=== PATIENT | female | born 1965 | race Caucasian/White ===

== ENCOUNTER 2019-03-10 16:38 | Inpatient (IN) | payer SELFPAY ==
[~2019-03-10] VITALS: Ht 175.2 cm; Wt 62.8 kg
[2019-03-10 16:42] VITALS: BP 118/52
[2019-03-10 17:09] LABS: BASO % 0.2 % (0.0-1.0); EOS % 0.1 % (1.0-4.0); HEMATOCRIT 40.1 % (37.0-47.0); HEMOGLOBIN 13.2 g/dl (12.0-16.0); LYMPH # 1.1 10*3/uL (1.3-4.4); LYMPH % 7.8 % (27.0-41.0); MEAN CELL VOLUME 99.3 fl (81.0-99.0); MEAN CORPUSCULAR HGB 32.7 pg (27.0-31.0); MEAN CORPUSCULAR HGB CONC 32.9 g/dl (33.0-37.0); MONO # 0.4 10*3/uL (0.1-1.0); MONO % 2.5 % (3.0-9.0); PLATELET COUNT AUTOMATED 333 10*3/uL (130-400); RED BLOOD COUNT 4.04 10*6/uL (4.10-5.10); RED CELL DISTRI WIDTH 12.7 % (0-14.5); WHITE BLOOD COUNT 14.6 10*3/uL (4.8-10.8)
--- NOTE | 2019-03-10 17:13 | NUR ---
PT UNABLE TO PROVIDE URINE SPECIMEN AT THIS TIME, REFUSES CATH SPECIMEN. SALINE INFUSING WIDE BOLUS NOW.
[2019-03-10 17:23] LABS: ALBUMIN 3.7 gm/dl (3.1-4.5); CREATININE 1.95 mg/dL (0.55-1.02); POTASSIUM 4.1 mmol/L (3.5-5.1)
--- NOTE | 2019-03-10 17:24 | NUR ---
BLOOD GLUCOSE 547 AT THIS TIME CALLED CRITICAL. DR EDDY NOTIFIED.
[2019-03-10 17:53] VITALS: BP 107/42
[2019-03-10 18:19] LABS: ABG BASE EXCESS -11.3 mmol/L (-2.0-2.0); ABG HCO3 13.3 mmol/l (22-26); ABG O2 SATURATION 97.5 % (95-97); ARTERIAL BLOOD GAS PH 7.312 (7.35-7.45); ARTERIAL BLOOD GAS PO2 83.9 mmHg (80-90)
--- NOTE | 2019-03-10 18:21 | NUR ---
1811- [facility] PER POLICY AND PROCEDURE. ALLENS TEST SUCCESSFUL. SITE CLEANED. PRESSURE HELD X 5 MIN AFTER GAS. EXPLAINED PROCEDURE TO PT. PT TOLERATED WELL.
--- NOTE | 2019-03-10 18:55 | NUR ---
DR EDDY INFORMED THAT A RESIDENT UPSTAIRS HAS ASKED THAT PT BE ADMITTED TO ICU FOR D.K.A. DR EDDY STATES PT DOES NOT HAVE D.K.A. AND DECLINES TO PUT IN THE ORDER.
[2019-03-10 19:45] VITALS: BP 125/56
--- NOTE | 2019-03-10 19:45 | NUR ---
A 53, admitted to ICCU, under the services of HIAM Joya DO with a diagnosis of DKA. Chief complaint is HYPERGLYCEMIA. Patient arrived via bed from ER. Monitor applied. Initial assessment completed. Vital signs taken and recorded. HAIM JOYA DO notified of admission to the unit. Orders received. See assessment for past medical history, medications and allergies. Patient and/or family oriented to unit. [facility] ICCU visitation policy reviewed. Clothing/patient valuable form completed. STEPHANIE CORDOBA
--- NOTE | 2019-03-10 19:55 | NUR ---
INSULIN GTT INITIATED. BG 319 ON ARRIVAL TO ICCU 5. RATE STARTED AT 4UNITS/HR PER SCALE.
[2019-03-10 20:00] VITALS: BP 125/56
[2019-03-10] MEDS ORDERED: HUMALOG100 UNIT/2 SQ (20:09)
[2019-03-10 20:10] LABS: BILIRUBIN 1+ (NEGATIVE); BLOOD TRACE-INTACT (NEGATIVE); CLARITY CLEAR (CLEAR); COLOR YELLOW (YELLOW); GLUCOSE 3+ (NEGATIVE); KETONE 3+ (NEGATIVE); LEUKO ESTERASE TRACE (NEGATIVE); NITRITE NEGATIVE (NEGATIVE); UROBILINOGEN 0.2 E.U./dl (0.2-1.0)
[2019-03-10] MEDS ORDERED: LANTUS SOL100 UNIT/1 SQ (20:10)
[2019-03-10 20:25] LABS: BACTERIA 1+; HYALINE CAST 0-2; WBC 21-30 wbc/hpf (0-5)
[2019-03-10 20:26] LABS: RBC 0-2 rbc/hpf (0-2)
--- NOTE | 2019-03-10 20:30 | NUR ---
NOTIFIED DR. MASON THAT MED REC IS UP TO DATE AND CURRENT BLOOD SUGAR OF 233. PATIENT INSULIN GTT STILL AT INITIAL RATE OF 4UNITS/HR. ORDERS RECEIVED TO CHANGE FLUIDS FROM NORMAL SALINE TO D5 1/2 NS @ 125/HR. DIET ORDERED. AND NIGHT TIME DOSE OF LANTUS TO BE GIVEN.
[2019-03-10 22:23] LABS: CREATININE 1.48 mg/dL (0.55-1.02); POTASSIUM 4.2 mmol/L (3.5-5.1)
[2019-03-11] VITALS: BP 106/51
--- NOTE | 2019-03-11 | NUR ---
INSULIN DRIP AND D5 1/2 NS STOPPED PER ORDERS. CURRENT BG OF 140. WILL CONTINUE TO MONITOR AND REASSESS.
--- NOTE | 2019-03-11 02:00 | NUR ---
PATIENT BLOOD GLUCOSE 62. PATIENT STATES THAT THEIR SUGAR DOES FEEL LOW. JUICE GIVEN WITH TD CRACKER AND PEANUT BUTTER. WILL RECHECK IN TWO HOURS.
[2019-03-11 02:16] LABS: CREATININE 1.23 mg/dL (0.55-1.02); POTASSIUM 3.8 mmol/L (3.5-5.1)
[2019-03-11 04:00] VITALS: BP 102/50
--- NOTE | 2019-03-11 04:30 | NUR ---
BLOOD GLUCOSE 81 ON RECHECK. PATIENT STATES THEY FEEL MUCH BETTER. SNACK ON BEDSIDE TABLE FOR PATIENT.
[2019-03-11 06:16] LABS: BASO % 0.4 % (0.0-1.0); EOS # 0.1 10*3/uL (0.0-0.4); EOS % 1.1 % (1.0-4.0); HEMATOCRIT 34.2 % (37.0-47.0); HEMOGLOBIN 11.5 g/dl (12.0-16.0); LYMPH # 2.3 10*3/uL (1.3-4.4); LYMPH % 21.9 % (27.0-41.0); MEAN CELL VOLUME 96.6 fl (81.0-99.0); MEAN CORPUSCULAR HGB 32.5 pg (27.0-31.0); MEAN CORPUSCULAR HGB CONC 33.6 g/dl (33.0-37.0); MEAN PLATELET VOLUME 9.5 fl (9.6-12.3); MONO # 0.6 10*3/uL (0.1-1.0); MONO % 5.9 % (3.0-9.0); NEUT # 7.4 10*3/uL (2.3-7.9); NEUT % 70.3 % (47.0-73.0); PLATELET COUNT AUTOMATED 272 10*3/uL (130-400); RED BLOOD COUNT 3.54 10*6/uL (4.10-5.10); RED CELL DISTRI WIDTH 12.8 % (0-14.5); WHITE BLOOD COUNT 10.5 10*3/uL (4.8-10.8)
[2019-03-11 06:36] LABS: CREATININE 1.18 mg/dL (0.55-1.02); POTASSIUM 3.6 mmol/L (3.5-5.1)
[2019-03-11 06:39] LABS: ALBUMIN 3.1 gm/dl (3.1-4.5); CREATININE 1.16 mg/dL (0.55-1.02); PHOSPHOROUS 1.8 mg/dL (2.5-4.9); POTASSIUM 3.6 mmol/L (3.5-5.1); TOTAL PROTEIN 5.8 gm/dL (6.4-8.2)
[2019-03-11 06:43] LABS: THYROID STIM HORMONE (HS) 22.7 uIU/ml (0.358-4.75)
[2019-03-11 08:00] VITALS: BP 106/50
--- NOTE | 2019-03-11 09:09 | NUR ---
DR. RICHTER HERE TO SEE PATIENT AND WAS UPDATED ON CARE
[2019-03-11 12:00] VITALS: BP 111/48
--- NOTE | 2019-03-11 15:45 | NUR ---
ASSUMES CARE FOR PATIENT AT THIS TIME. REPORT RECEIVED FROM [facility] NURSE GRACE. SEE ASSESSMENT.
[2019-03-11 16:00] VITALS: BP 119/45
--- NOTE | 2019-03-11 16:10 | NUR ---
TRANSFERRED TO ROOM [facility] VIA WHEELCHAIR.
--- NOTE | 2019-03-11 19:24 | NUR ---
PT AWAKE IN BED. PATIENT DENIES ANY NEEDS AT THIS TIME. IVF INFUSING PER ORDER. WILL CONTINUE TO MONITOR. CALL LIGHT LEFT IN REACH.
[2019-03-11 20:00] VITALS: BP 113/51
--- NOTE | 2019-03-11 21:25 | NUR ---
PATIENT'S BSG CURRENTLY 60. PT ASYMPTOMATIC. BOXED LUNCH WITH TURKEY SANDWICH, TD CRACKERS, PEANUT BUTTER, AND ORANGE JUICE PROVIDED. PT EDUCATED ON S/S TO NOTIFY RN. VERBALIZES UNDERSTANDING. WILL RECHECK BSG AT LATER TIME.
--- NOTE | 2019-03-11 21:34 | NUR ---
EARLIER MEDICATIONS APPEAR EFFECTIVE. PT RESTING IN BED WITH EYES CLOSED. NO S/S OF DISTRESS NOTED. WILL MONITOR. CALL LIGHT IN REACH, BED ALARM INTACT.
--- NOTE | 2019-03-11 22:19 | NUR ---
PT'S BSG NOW 70. GRAPE JUICE PROVIDED PER REQUEST. PT REMAINS ASYMPTOMATIC. WILL CONTINUE TO MONITOR. CALL LIGHT IN REACH.
--- NOTE | 2019-03-11 23:33 | NUR ---
PT TAKEN OFF MONITOR TO GET A SHOWER. TOWELS/WASH CLOTHS/GOWN/SOAP PROVIDED. IV SITE TO LAC WRAPPED. PATIENT A&OX3 & AMBULATORY. ELECTRIC STOP INSTALLER NOTIFIED OF PT BEING TAKEN OFF MONITOR. WILL MONITOR.
[2019-03-12] VITALS: BP 107/52
--- NOTE | 2019-03-12 00:18 | NUR ---
PT PLACED BACK ON CONSTRUCTION ANALYST. PT REFUSED TO GET A SHOWER, BUT STATES SHE DID NOT WANT TO TELL RN BECAUSE SHE DIDN'T WANT TO GO BACK ON THE MONITOR. RN EXPLAINED THAT THE MONITOR WAS ORDERED FOR HER PER THE DOCTORS & SHE IS ENCOURAGED TO WEAR IT. PT AGREEABLE. DENIES ANY NEEDS AT THIS TIME.
--- NOTE | 2019-03-12 02:53 | NUR ---
PT ASLEEP IN BED. RESPIRATIONS EASY. NO S/S OF DISTRESS NOTED. WILL MONITOR. CALL LIGHT IN REACH.
--- NOTE | 2019-03-12 05:58 | NUR ---
NOTIFIED OF BSG 50 AT THIS TIME. DISCUSSED ORANGE JUICE WITH ADDED SUGAR GIVEN, PEANUT BUTTER, & TD CRACKERS. PATIENT DENIES ANY SYMPTOMS, AND IS COMPLAINING OF ONLY A HEADACHE. PT MEDICATED WITH PO TYLENOL FOR THIS REASON. DISCUSSED D50 SHORTAGE/OUT OF STOCK & ALTERNATIVE SUGGESTION 500ML D10W. INSTRUCTED TO ENCOURAGE PT TO EAT/DRINK AND RECHECK BSG WITHIN THE HOUR.
--- NOTE | 2019-03-12 06:37 | NUR ---
BSG NOW 141. PT DENIES ANY NEW/WORSENING SYMPTOMS. STILL C/O MILD HEADACHE, BUT PT STATES IT IS IMPROVING. WILL MONITOR. CALL LIGHT IN REACH.
[2019-03-12 08:00] VITALS: BP 116/58
--- NOTE | 2019-03-12 08:30 | NUR ---
Patient resting quietly with no c/o discomfort. Respirations easy and regular. Vital signs stable. No overt distress. FLAQUITO MEJIA R
--- NOTE | 2019-03-12 09:00 | NUR ---
Rn Surgical in to talk to patient. Patient states lives at home with . There are few steps in the home. Physician: jordana cloud [facility]acy: [facility] Home health services: none Patient's level of ADLs: INDEPENDENT Patient has working utilities: all working DME: none Follow-up physician's appointment after d/c: will be made by hospitalist nurse director upon discharge Does patient want to access PORTAL?: no Discharge plan discussed with patient, patient lives at home with , she is independent in adls and ambulation patient states she is having difficulty paying for her medication due to no insurance, educated her regarding [facility] pharmacy program to help patient's afford their medications, patient wanted to have her scripts filled here where she can afford them, also educated her that Jovita from [employer] will see her regarding help with her hospital bill, patient denied any other needs at this time, case management will follow. MORGAN LIMA
--- NOTE | 2019-03-12 10:50 | NUR ---
Nutritional Support Services Note: Pt is a 53 year old female who presents with hyperglycemia and DKA. Upon interview, she stated she knows she needs to plan her meals better, but she doesn't have time to worry about what she's eating. She stated when she was first dx years ago, she would plan all of her meals out but no longer makes time for this. She told me if I were to educate her it would be a waste of time because she isn't going to adhere once DC. Pt noncomplient. Edmar Martin [employer] C[employer] Student
--- NOTE | 2019-03-12 11:30 | NUR ---
BSG 216. PT REQUESTS TO HOLD OFF ON INSULIN AND TEST AGAIN LATER AND MEDICATE FOR THAT RESULT. NO S/S OF HYPO/HYPERGLYCEMIA NOTED. WILL MONITOR
[2019-03-12] MEDS ORDERED: Humalog SQ (12:58)
[2019-03-12] MEDS ORDERED: LANTUS SOL100 UNIT/1 SQ (12:58)
--- NOTE | 2019-03-12 13:19 | NUR ---
BSG TAKEN PER REQUEST, RESULT 203. PT REQUESTS ONLY 2 UNITS OF INSULIN TO BE GIVEN. GIVEN PER REQUEST. CALL LIGHT IN REACH. WILL MONITOR
--- NOTE | 2019-03-12 14:38 | NUR ---
Discharge instructions reviewed with patient/family. Patient receptive and verbalizes understanding. Follow-up care arranged. Written instructions given to patient/family. FLAQUITO MEJIA
== END 2019-03-12 14:38 | disposition home or self-care (01) | DRG 637 ==
LOC: ED 16:38 → 4E 18:45 → EDHOLD 18:45 → ICCU 18:45 → 4E 18:50 → ICCU 19:14 → 5E 03-11 15:40
PROVIDERS: Emergency Medicine; Student in an Organized Health Care Education/Training Program; ADMIT Emergency Medicine
DX: E11.10 Type 2 diabetes mellitus with ketoacidosis without coma (principal); N17.0 Acute kidney failure with tubular necrosis; R65.10 Systemic inflammatory response syndrome (SIRS) of non-infectious origin without acute organ dysfunction; E44.0 Moderate protein-calorie malnutrition; E87.1 Hypo-osmolality and hyponatremia; D72.829 Elevated white blood cell count, unspecified; E87.8 Other disorders of electrolyte and fluid balance, not elsewhere classified; D64.9 Anemia, unspecified; Z71.6 Tobacco abuse counseling; Z79.4 Long term (current) use of insulin; Z68.1 Body mass index [BMI] 19.9 or less, adult; Z88.8 Allergy status to other drugs, medicaments and biological substances; Z80.1 Family history of malignant neoplasm of trachea, bronchus and lung

== ENCOUNTER → 2019-04-01 | Outpatient (CLI) | payer SELFPAY ==
[~2019-04-01] MED LIST: HUMALOG100 UNIT/2 SQ; Humalog SQ; LANTUS SOL100 UNIT/1 SQ
== END | disposition home or self-care (01) ==
LOC: RESCLI 00:39
DX: Z13.9 Encounter for screening, unspecified (principal); E10.69 Type 1 diabetes mellitus with other specified complication; E03.9 Hypothyroidism, unspecified; E55.9 Vitamin D deficiency, unspecified; D64.9 Anemia, unspecified; Z72.0 Tobacco use; Z79.899 Other long term (current) drug therapy; Z88.8 Allergy status to other drugs, medicaments and biological substances

== ENCOUNTER → 2019-06-10 | Outpatient (CLI) | payer OTHER ==
[2019-06-10 15:36] LABS: HEMATOCRIT 42.3 % (37.0-47.0); HEMOGLOBIN 13.7 g/dl (12.0-16.0); MEAN CELL VOLUME 98.8 fl (81.0-99.0); MEAN CORPUSCULAR HGB CONC 32.4 g/dl (33.0-37.0); MEAN PLATELET VOLUME 10.6 fl (9.6-12.3); RED BLOOD COUNT 4.28 10*6/uL (4.10-5.10); RED CELL DISTRI WIDTH 12.8 % (0-14.5); WHITE BLOOD COUNT 7.6 10*3/uL (4.8-10.8)
[2019-06-10 16:26] LABS: FREE T4 0.55 ng/dl (0.76-1.46)
[2019-06-11 13:09] LABS: ANTI-DSDNA ANTIBODIES 096339 1 IU/mL (0-9); ANTI-RNP ANTIBODIES <0.2 AI (0.0-0.9); ANTICHROMATIN ANTIBODIES <0.2 AI (0.0-0.9); ANTISCLERODERMA-70 AB <0.2 AI (0.0-0.9); SJOGREN ANTI-SS-A <0.2 AI (0.0-0.9); SJOREN AB, ANTI-SS-B <0.2 AI (0.0-0.9)
== END | disposition home or self-care (01) ==
LOC: RESCLI 00:51
PROVIDERS: Internal Medicine
DX: Z13.9 Encounter for screening, unspecified (principal); E10.69 Type 1 diabetes mellitus with other specified complication; E03.9 Hypothyroidism, unspecified; E55.9 Vitamin D deficiency, unspecified; D64.9 Anemia, unspecified; M25.552 Pain in left hip; Z72.0 Tobacco use; Z79.899 Other long term (current) drug therapy

== ENCOUNTER → 2019-06-12 | Outpatient (CLI) | payer OTHER | END | disposition home or self-care (01) | LOC: RAD 10:21 | DX: M25.552 Pain in left hip (principal); M54.5 Low back pain ==

== ENCOUNTER → 2019-07-16 | Outpatient (CLI) | payer OTHER ==
--- NOTE | ~2019-07-16 | EKG ---
[place], [place] ELECTROCARDIOGRAM REPORT NAME: ROBERT SILVA UNIT #: [id number] ROOM: DOCTOR: EPIPHANY DRAFT REPORT BIRTHDATE: [birth year] [facility] Test Date: 2019-07-16 Test Time: 09:36:12 Pat Name: ROBERT SILVA Department: Room: Gender: F Associate Loan Officer: Kelsey Canas : 1965 Requested By: MUSTAPHA PUENTES Order Number: [id number] Reading MD: Mustapha Puentes MD Measurements Intervals [place] Rate: 58 P: -3 CA: 133 QRS: 7 QRSD: 102 T: 29 QT: 441 QTc: 434 Interpretive Statements Sinus rhythm Borderline low voltage, extremity leads Baseline wander in lead(s) V1,V2,V3,V4,V5,V6 No previous ECG available for comparison Electronically Signed On 07-17-2019 11:32:05 PST by Mustapha Puentes MD CM:EKGRPT:ELECTROCARDIOGRAM REPORT [id number] MUSTAPHA PUENTES MD EPIPHANY DRAFT REPORT MUSTAPHA PUENTES MD
[2019-07-16 10:17] LABS: BASO # 0.1 10*3/uL (0.0-0.1); BASO % 0.9 % (0.0-1.0); EOS # 0.3 10*3/uL (0.0-0.4); EOS % 3.3 % (1.0-4.0); HEMATOCRIT 44.6 % (37.0-47.0); HEMOGLOBIN 14.2 g/dl (12.0-16.0); LYMPH # 1.6 10*3/uL (1.3-4.4); LYMPH % 19.3 % (27.0-41.0); MEAN CELL VOLUME 99.1 fl (81.0-99.0); MEAN CORPUSCULAR HGB 31.6 pg (27.0-31.0); MEAN CORPUSCULAR HGB CONC 31.8 g/dl (33.0-37.0); MEAN PLATELET VOLUME 10.2 fl (9.6-12.3); MONO # 0.5 10*3/uL (0.1-1.0); MONO % 5.6 % (3.0-9.0); NEUT % 70.4 % (47.0-73.0); PLATELET COUNT AUTOMATED 352 10*3/uL (130-400); RED CELL DISTRI WIDTH 12.7 % (0-14.5); WHITE BLOOD COUNT 8.5 10*3/uL (4.8-10.8)
[2019-07-16 10:52] LABS: ALBUMIN 4.1 gm/dl (3.1-4.5); CREATININE 1.18 mg/dL (0.55-1.02); POTASSIUM 4.9 mmol/L (3.5-5.1); TOTAL PROTEIN 8.1 gm/dL (6.4-8.2)
[2019-07-16 10:59] LABS: VITAMIN D, 25-HYDROXY 25.5 ng/mL (30-100)
[2019-07-16 11:26] LABS: FREE T4 0.71 ng/dl (0.76-1.46)
== END | disposition home or self-care (01) ==
LOC: RESCLI 01:29
PROVIDERS: Internal Medicine
DX: E10.69 Type 1 diabetes mellitus with other specified complication (principal); E03.9 Hypothyroidism, unspecified; E55.9 Vitamin D deficiency, unspecified; D64.9 Anemia, unspecified; M25.552 Pain in left hip; R42 Dizziness and giddiness; Z72.0 Tobacco use; Z79.899 Other long term (current) drug therapy

== ENCOUNTER → 2019-07-18 | Outpatient (CLI) | payer OTHER | END | disposition home or self-care (01) | LOC: RESCLI 00:35 | DX: R42 Dizziness and giddiness (principal); E10.69 Type 1 diabetes mellitus with other specified complication; E03.9 Hypothyroidism, unspecified; E55.9 Vitamin D deficiency, unspecified; Z79.899 Other long term (current) drug therapy ==

== ENCOUNTER 2019-10-18 09:28 | Emergency (ER) | payer OTHER ==
[~2019-10-18] VITALS: Ht 175.2 cm; Wt 63.5 kg
[2019-10-18 10:03] LABS: BASO # 0.1 10*3/uL (0.0-0.1); BASO % 0.7 % (0.0-1.0); EOS # 0.2 10*3/uL (0.0-0.4); HEMOGLOBIN 14.1 g/dl (12.0-16.0); LYMPH # 1.3 10*3/uL (1.3-4.4); LYMPH % 16.6 % (27.0-41.0); MEAN CELL VOLUME 97.3 fl (81.0-99.0); MEAN CORPUSCULAR HGB 31.9 pg (27.0-31.0); MEAN CORPUSCULAR HGB CONC 32.8 g/dl (33.0-37.0); MEAN PLATELET VOLUME 10.5 fl (9.6-12.3); MONO # 0.6 10*3/uL (0.1-1.0); MONO % 7.9 % (3.0-9.0); NEUT # 5.5 10*3/uL (2.3-7.9); NEUT % 72.4 % (47.0-73.0); PLATELET COUNT AUTOMATED 202 10*3/uL (130-400); RED BLOOD COUNT 4.42 10*6/uL (4.10-5.10); RED CELL DISTRI WIDTH 12.7 % (0-14.5); WHITE BLOOD COUNT 7.6 10*3/uL (4.8-10.8)
[2019-10-18 10:15] LABS: ACT PARTIAL THROMBO TIME 29.4 SECONDS (20.0-32.1); INTERNATIONAL NORM RATIO 0.9 (2.0-3.5)
[2019-10-18 10:19] LABS: ALBUMIN 3.6 gm/dl (3.1-4.5); ALKALINE PHOSPHATASE 96 U/L (45-117); BUN 19 mg/dl (7-24); CHLORIDE 100 mmol/L (98-107); CREATININE 1.28 mg/dL (0.55-1.02); LIPASE 48 U/L (73-393); POTASSIUM 4.5 mmol/L (3.5-5.1); SGOT/AST 15 IU/L (3-35); SGPT/ALT 14 U/L (12-78); SODIUM 134 mmol/L (136-145); TOTAL PROTEIN 7.6 gm/dL (6.4-8.2)
[2019-10-18 10:21] LABS: TROPONIN I < 0.015 ng/ml (<0.045)
[2019-10-18] MEDS ORDERED: PREDNISONE20 M1 PO (11:17)
[2019-10-18] MEDS ORDERED: TAMIFLU 75MG CA75 MG PO (11:17)
[2019-10-18] MEDS ORDERED: PROVENTIL HFA6.7 GM INH (11:17)
[2019-10-18] MEDS ORDERED: TESSALON PERLE100 MG PO (11:17)
== END 2019-10-18 12:35 | disposition home or self-care (01) ==
LOC: ED 09:28
PROVIDERS: Nurse Practitioner Family
DX: J10.1 Influenza due to other identified influenza virus with other respiratory manifestations (principal); E86.0 Dehydration; E03.9 Hypothyroidism, unspecified; E11.9 Type 2 diabetes mellitus without complications; F17.200 Nicotine dependence, unspecified, uncomplicated; Z88.8 Allergy status to other drugs, medicaments and biological substances; Z79.4 Long term (current) use of insulin

== ENCOUNTER 2019-10-25 13:58 | Emergency (ER) | payer OTHER ==
[~2019-10-25] VITALS: Ht 175.2 cm; Wt 63.5 kg
[~2019-10-25 13:58] MED LIST changes: +PREDNISONE20 M1 PO; +PROVENTIL HFA6.7 GM INH; +TAMIFLU 75MG CA75 MG PO; +TESSALON PERLE100 MG PO
[2019-10-25] MEDS ORDERED: LEVAQUIN750 M1 PO (16:01)
== END 2019-10-25 16:05 | disposition home or self-care (01) ==
LOC: ED 13:58
DX: J18.9 Pneumonia, unspecified organism (principal); E11.9 Type 2 diabetes mellitus without complications; F17.200 Nicotine dependence, unspecified, uncomplicated; Z88.8 Allergy status to other drugs, medicaments and biological substances; Z79.899 Other long term (current) drug therapy; Z79.4 Long term (current) use of insulin

== ENCOUNTER 2019-10-31 15:14 | Emergency (ER) | payer OTHER ==
[~2019-10-31] VITALS: Ht 175.2 cm; Wt 63.5 kg
[~2019-10-31 15:14] MED LIST changes: +LEVAQUIN750 M1 PO
[2019-10-31] MEDS ORDERED: TYLENOL W/CODEI1 TA4 PO (19:56)
== END 2019-10-31 20:21 | disposition home or self-care (01) ==
LOC: ED 15:14
DX: S93.401A Sprain of unspecified ligament of right ankle, initial encounter (principal); S40.811A Abrasion of right upper arm, initial encounter; M54.5 Low back pain; M79.671 Pain in right foot; M25.562 Pain in left knee; Z88.8 Allergy status to other drugs, medicaments and biological substances; Z79.899 Other long term (current) drug therapy; Z79.2 Long term (current) use of antibiotics; Z87.891 Personal history of nicotine dependence; W10.8XXA Fall (on) (from) other stairs and steps, initial encounter; Y93.89 Activity, other specified; Y92.89 Other specified places as the place of occurrence of the external cause; Y99.8 Other external cause status

== ENCOUNTER → 2020-10-05 | Outpatient (CLI) | payer OTHER ==
[~2020-10-05] MED LIST changes: +TYLENOL W/CODEI1 TA4 PO
== END | disposition home or self-care (01) ==
LOC: MAMMO 08-24 13:30
PROVIDERS: ATTEND Internal Medicine
DX: Z12.31 Encounter for screening mammogram for malignant neoplasm of breast (principal)

== ENCOUNTER → 2021-06-30 | Outpatient (CLI) | payer OTHER | END | disposition home or self-care (01) | LOC: MAMMO 07:29 | PROVIDERS: ATTEND Internal Medicine | DX: N64.4 Mastodynia (principal) ==

== ENCOUNTER → 2021-07-15 | Outpatient (CLI) | payer OTHER | END | disposition home or self-care (01) | LOC: COVID19 17:31 | PROVIDERS: ATTEND Student in an Organized Health Care Education/Training Program | DX: Z11.52 Encounter for screening for COVID-19 (principal) ==

== ENCOUNTER → 2021-11-03 | Outpatient (CLI) | payer OTHER | END | disposition home or self-care (01) | LOC: RAD 13:27 | PROVIDERS: ATTEND Internal Medicine | DX: M79.672 Pain in left foot (principal) ==

== ENCOUNTER 2022-02-06 19:46 | Emergency (ER) | payer OTHER ==
[~2022-02-06] VITALS: Ht 175.2 cm; Wt 61.7 kg
[2022-02-06] MEDS ORDERED: MAGNESIUM250 M2 PO (19:52)
[2022-02-06] MEDS ORDERED: VENLAFAXINE HCL25 MG PO (19:53)
[2022-02-06] MEDS ORDERED: ASPIRIN ADULT L81 M1 PO (19:53)
[2022-02-06] MEDS ORDERED: ARMOUR THYROID240 MG PO (19:53)
[2022-02-06] MEDS ORDERED: KENALOG 0.1%80 GM T (20:26)
== END 2022-02-06 20:36 | disposition home or self-care (01) ==
LOC: ED 19:46
DX: R21 Rash and other nonspecific skin eruption (principal); Z20.822 Contact with and (suspected) exposure to COVID-19; E11.9 Type 2 diabetes mellitus without complications; Z88.8 Allergy status to other drugs, medicaments and biological substances; Z79.899 Other long term (current) drug therapy; Z79.82 Long term (current) use of aspirin; F17.200 Nicotine dependence, unspecified, uncomplicated

== ENCOUNTER → 2022-06-29 | Outpatient (CLI) | payer MEDICARE ==
[~2022-06-29] MED LIST changes: +ARMOUR THYROID240 MG PO; +ASPIRIN ADULT L81 M1 PO; +KENALOG 0.1%80 GM T; +MAGNESIUM250 M2 PO; +VENLAFAXINE HCL25 MG PO
== END | disposition home or self-care (01) ==
LOC: RAD 13:43
PROVIDERS: ATTEND Internal Medicine
DX: M25.552 Pain in left hip (principal); Z96.642 Presence of left artificial hip joint

== ENCOUNTER → 2023-02-24 | Outpatient (CLI) | payer OTHER | END | disposition home or self-care (01) | LOC: RAD 11:07 | PROVIDERS: ATTEND Internal Medicine | DX: R07.9 Chest pain, unspecified (principal) ==

== ENCOUNTER 2023-07-12 09:54 | Emergency (ER) | payer OTHER ==
[~2023-07-12] VITALS: Wt 60.8 kg
== END 2023-07-12 13:50 | disposition home or self-care (01) ==
LOC: ED 09:54
DX: S93.401A Sprain of unspecified ligament of right ankle, initial encounter (principal); M25.561 Pain in right knee; E11.9 Type 2 diabetes mellitus without complications; Z88.8 Allergy status to other drugs, medicaments and biological substances; F17.200 Nicotine dependence, unspecified, uncomplicated; W10.9XXA Fall (on) (from) unspecified stairs and steps, initial encounter; Y93.01 Activity, walking, marching and hiking; Y92.89 Other specified places as the place of occurrence of the external cause; Y99.8 Other external cause status

== ENCOUNTER → 2024-01-09 | Outpatient (CLI) | payer MEDICARE, MEDICAID | END | disposition home or self-care (01) | LOC: US 01:26 | PROVIDERS: ATTEND Internal Medicine Nephrology | DX: N28.89 Other specified disorders of kidney and ureter (principal); N18.31 Chronic kidney disease, stage 3a; D17.79 Benign lipomatous neoplasm of other sites ==

== ENCOUNTER → 2024-07-02 | Outpatient (CLI) | payer MEDICARE, MEDICAID ==
[2024-07-02 13:25] LABS: FREE T4 1.54 ng/dl (0.89-1.76); URIC ACID 4.2 mg/dL (3.1-7.8)
== END | disposition home or self-care (01) ==
LOC: LAB 12:24
PROVIDERS: ATTEND Internal Medicine
DX: M25.50 Pain in unspecified joint (principal); Z79.899 Other long term (current) drug therapy